=== PATIENT | female | born 1935 | race African-American/Black ===

== ENCOUNTER → 2017-06-30 | Outpatient (CLI) | payer OTHER ==
[~2017-06-30] MED LIST: AMLO5TAB2 PO; ASPI325T17 PO; CARV-39 PO; CHOL500045 PO; HYDR-3237 PO; HYDR-3240 PO; HYDR12.53 PO; LOSA100T6 PO; OMEP-110 PO; OXYB5TAB7 PO; OXYC-302 PO; SIMV20TA3 PO; ZOLP5TAB6 PO
== END | disposition home or self-care (01) ==
LOC: CFH 15:58
PROVIDERS: ATTEND Family Medicine
DX: M47.895 Other spondylosis, thoracolumbar region (principal); M41.85 Other forms of scoliosis, thoracolumbar region; M16.11 Unilateral primary osteoarthritis, right hip; M47.897 Other spondylosis, lumbosacral region; Z96.642 Presence of left artificial hip joint; W18.30XA Fall on same level, unspecified, initial encounter
CPT/HCPCS: 72072; 72110; 72220

== ENCOUNTER 2018-03-04 07:47 | Emergency (ER) | payer OTHER ==
[~2018-03-04] VITALS: Ht 157.5 cm; Wt 74.5 kg
[2018-03-04] MEDS ORDERED: MULT-155 PO (08:13)
[2018-03-04] MEDS ORDERED: SODIUM CHLORIDE FLUSH 10ML SYR IVF ONE (08:30)
[2018-03-04] MEDS ORDERED: MORPHINE SULFATE 4 MG/ML, 1ML ONE (08:30)
[2018-03-04] MEDS ORDERED: MORPHINE SULFATE 4 MG/ML, 1ML IVPush PRN (08:30)
[2018-03-04] MEDS ORDERED: SODIUM CHLORIDE 0.9% 1,000ML IVBOLUS ONE (08:30)
[2018-03-04] MEDS ORDERED: ONDANSETRON ODT 4 MG ONE (08:30)
[2018-03-04] MEDS ORDERED: ONDANSETRON ODT 4 MG PO ONE ×2 (08:30→09:00)
[2018-03-04 08:48] LABS: BASOPHILS # (AUTO) 0.03 x10^3/uL (0-0.1); BASOPHILS % (AUTO) 1 % (0-1); EOSINOPHILS # (AUTO) 0.21 x10^3/uL (0-0.4); EOSINOPHILS % (AUTO) 4 % (1-7); LYMPHOCYTES # (AUTO) 2.14 x10^3/uL (1-3.4); LYMPHOCYTES % (AUTO) 39 % (22-44); MD NO; MEAN CORPUSCULAR HEMOGLOBIN 30.8 pg (27.0-34.8); MEAN CORPUSCULAR HGB CONC 32.9 g/dL (32.4-35.8); MEAN CORPUSCULAR VOLUME 93.7 fL (80-100); MEAN PLATELET VOLUME 8.6 fL (7.4-10.4); MONOCYTES # (AUTO) 0.43 x10^3/uL (0.2-0.8); MONOCYTES % (AUTO) 8 % (2-9); NEUTROPHILS # (AUTO) 2.73 x10^3/uL (1.8-6.8); NEUTROPHILS % (AUTO) 49 % (42-75); PLATELET COUNT 298 x10^3/uL (130-400); RED BLOOD COUNT 4.01 x10^6/uL (3.82-5.3); RED CELL DISTRIBUTION WIDTH 15.9 % (9.6-15.2)
[2018-03-04 08:56] LABS: ALBUMIN 3.5 g/dL (3.4-5.0); ANION GAP 5 mmol/L (5-15); CALCIUM 8.6 mg/dL (8.5-10.1); CHLORIDE 108 mmol/L (98-107); CREATININE 1.11 mg/dL (0.55-1.02)
[2018-03-04 09:00] LABS: MICROSCOPIC NOT IND
[2018-03-04 09:07] LABS: CULTURE INDICATED? NO
[2018-03-04 09:56] VITALS: BP 142/69
== END 2018-03-04 10:18 | disposition home or self-care (01) ==
LOC: ED 08:57
DX: S29.012A Strain of muscle and tendon of back wall of thorax, initial encounter (principal); J15.9 Unspecified bacterial pneumonia; E03.9 Hypothyroidism, unspecified; E11.9 Type 2 diabetes mellitus without complications; I10 Essential (primary) hypertension; X58.XXXA Exposure to other specified factors, initial encounter; Y93.89 Activity, other specified; Y92.89 Other specified places as the place of occurrence of the external cause; Y99.8 Other external cause status
CPT/HCPCS: 36415; 71045; 80048; 81003; 82040; 83605; 85025; 93005; 96374; 99285; J7030; Q0162

== ENCOUNTER 2018-07-24 14:53 | Emergency (ER) | payer OTHER ==
[~2018-07-24] VITALS: Ht 157.5 cm; Wt 78.2 kg
[~2018-07-24 14:53] MED LIST changes: -AMLO5TAB2 PO; +AMLO5TAB7 PO; -LOSA100T6 PO; +LOSA100T7 PO; +MULT-155 PO
[2018-07-24 14:59] VITALS: BP 162/82
[2018-07-24] MEDS ORDERED: METHOCARBAMOL 750 MG TABLET PO ONE (16:30)
[2018-07-24] MEDS ORDERED: METHOCARBAMOL 750 MG TABLET ONE (16:34)
== END 2018-07-24 16:48 | disposition home or self-care (01) ==
LOC: ED 16:08
DX: S46.911A Strain of unspecified muscle, fascia and tendon at shoulder and upper arm level, right arm, initial encounter (principal); I10 Essential (primary) hypertension; X58.XXXA Exposure to other specified factors, initial encounter; Y93.89 Activity, other specified; Y92.89 Other specified places as the place of occurrence of the external cause; Y99.8 Other external cause status
CPT/HCPCS: 99284

== ENCOUNTER 2018-12-14 11:00 | Emergency (ER) | payer MEDICARE, OTHER ==
[~2018-12-14] VITALS: Ht 157.5 cm; Wt 78.5 kg
[~2018-12-14 11:00] MED LIST changes: +AMLO-150 PO; -AMLO5TAB7 PO; +HYDR12.517 PO; -HYDR12.53 PO; +LOSA100T14 PO; -LOSA100T7 PO
[2018-12-14 15:03] LABS: ALBUMIN 3.8 g/dL (3.4-5.0); ANION GAP 4 mmol/L (5-15); CALCIUM 9.4 mg/dL (8.5-10.1); CHLORIDE 109 mmol/L (98-107)
[2018-12-14 15:08] LABS: CREATININE 0.95 mg/dL (0.55-1.02); TROPONIN I < 0.015 ng/mL (0.000-0.045)
[2018-12-14 15:11] LABS: BASOPHILS # (AUTO) 0.04 x10^3/uL (0-0.1); BASOPHILS % (AUTO) 1 % (0-1); EOSINOPHILS # (AUTO) 0.19 x10^3/uL (0-0.4); EOSINOPHILS % (AUTO) 4 % (1-7); LYMPHOCYTES # (AUTO) 1.97 x10^3/uL (1-3.4); LYMPHOCYTES % (AUTO) 36 % (22-44); MEAN CORPUSCULAR HEMOGLOBIN 30.9 pg (27.0-34.8); MEAN CORPUSCULAR HGB CONC 33.1 g/dL (32.4-35.8); MEAN CORPUSCULAR VOLUME 93.4 fL (80-100); MEAN PLATELET VOLUME 9.7 fL (7.4-10.4); MONOCYTES # (AUTO) 0.48 x10^3/uL (0.2-0.8); MONOCYTES % (AUTO) 9 % (2-9); NEUTROPHILS # (AUTO) 2.74 x10^3/uL (1.8-6.8); NEUTROPHILS % (AUTO) 51 % (42-75); PLATELET COUNT 284 x10^3/uL (130-400); RED BLOOD COUNT 4.44 x10^6/uL (3.82-5.3); RED CELL DISTRIBUTION WIDTH 15.6 % (9.6-15.2)
--- NOTE | 2018-12-14 15:11 | NUR ---
PT TO ROOM FROM LOBBY
[2018-12-14 15:12] LABS: MD NO
[2018-12-14] MEDS ORDERED: SODIUM CHLORIDE FLUSH 10ML SYR IVF ONE (16:00)
[2018-12-14] MEDS ORDERED: OMNIPAQUE 350 MG/ML, 100ML BOTTLE ONE (16:19)
[2018-12-14] MEDS ORDERED: MORPHINE SULFATE 4 MG/ML, 1ML ONE (16:36)
[2018-12-14] MEDS: MORPHINE SULFATE 4 MG/ML, 1ML IVPush PRN ×2 (16:44→17:23)
[2018-12-14 17:16] LABS: MICROSCOPIC NOT IND
[2018-12-14 17:38] LABS: CULTURE INDICATED? NO
[2018-12-14 18:46] VITALS: BP 151/75
== END 2018-12-14 18:49 | disposition home or self-care (01) ==
LOC: ED 16:07
DX: K59.00 Constipation, unspecified (principal); E78.5 Hyperlipidemia, unspecified; E78.00 Pure hypercholesterolemia, unspecified; E03.9 Hypothyroidism, unspecified; E11.9 Type 2 diabetes mellitus without complications
CPT/HCPCS: 36415; 71045; 73030; 74177; 80048; 81003; 82040; 83605; 83690; 84484; 85025; 93005; 96374; 96376; 99284; Q9967

== ENCOUNTER 2018-12-16 11:24 | Emergency (ER) | payer MEDICARE, OTHER ==
[~2018-12-16] VITALS: Ht 157.5 cm; Wt 76.0 kg
--- NOTE | 2018-12-16 11:40 | NUR ---
PT PRESENTED TO ED WITH LEFT SIDE PAIN X 5 DAYS. PT WAS SEEN HERE BEFOR 2 DAYS AGO FOR SAME. PT [id number]. PT PLACED IN ROOM AND PLACED ON BP AND CONT. PULSE OXIMETER. ASSESSMENT COMPLETED. AWAITING MD. CALL LIGHT IN REACH
--- NOTE | 2018-12-16 11:51 | NUR ---
Break RN note: Andrew ALMARAZ at bedside to evaluate pt.
[2018-12-16] MEDS ORDERED: SODIUM CHLORIDE FLUSH 10ML SYR IVF ONE (12:00)
[2018-12-16 12:29] LABS: BASOPHILS # (AUTO) 0.05 x10^3/uL (0-0.1); BASOPHILS % (AUTO) 1 % (0-1); EOSINOPHILS # (AUTO) 0.15 x10^3/uL (0-0.4); EOSINOPHILS % (AUTO) 3 % (1-7); LYMPHOCYTES % (AUTO) 40 % (22-44); MD NO; MEAN CORPUSCULAR HEMOGLOBIN 29.8 pg (27.0-34.8); MEAN CORPUSCULAR HGB CONC 32.6 g/dL (32.4-35.8); MEAN CORPUSCULAR VOLUME 91.7 fL (80-100); MEAN PLATELET VOLUME 9.1 fL (7.4-10.4); MONOCYTES # (AUTO) 0.44 x10^3/uL (0.2-0.8); MONOCYTES % (AUTO) 10 % (2-9); NEUTROPHILS # (AUTO) 2.03 x10^3/uL (1.8-6.8); NEUTROPHILS % (AUTO) 46 % (42-75); PLATELET COUNT 277 x10^3/uL (130-400); RED CELL DISTRIBUTION WIDTH 15.3 % (9.6-15.2)
[2018-12-16] MEDS ORDERED: ONDANSETRON 2MG/ML, 2ML ONE (12:29)
[2018-12-16] MEDS ORDERED: ONDANSETRON 2MG/ML, 2ML IVPush ONE (12:30)
[2018-12-16] MEDS ORDERED: MORPHINE SULFATE 4 MG/ML, 1ML IVPush ONE ×2 (12:30→14:00)
[2018-12-16] MEDS ORDERED: MORPHINE SULFATE 4 MG/ML, 1ML ONE (12:30)
[2018-12-16 12:42] LABS: ALBUMIN 3.4 g/dL (3.4-5.0); ANION GAP 4 mmol/L (5-15); CALCIUM 8.7 mg/dL (8.5-10.1); CHLORIDE 109 mmol/L (98-107)
[2018-12-16 12:46] LABS: ALANINE AMINOTRANSFERASE 20 U/L (12-78); ALKALINE PHOSPHATASE 58 U/L (45-117); BILIRUBIN,TOTAL 0.5 mg/dL (0.2-1.0); CREATININE 1.04 mg/dL (0.55-1.02); TOTAL PROTEIN 6.8 g/dL (6.4-8.2)
--- NOTE | 2018-12-16 12:59 | NUR ---
pt assisted to br and clean catch urine obtained and sent to lab. pt placed back on bp and cont. pulse oximeter.
[2018-12-16 13:02] LABS: MICROSCOPIC NOT IND
[2018-12-16 13:04] LABS: CULTURE INDICATED? NO
--- NOTE | 2018-12-16 14:14 | NUR ---
PT STATES ABD PAIN OF 6/10 2ND 2MG MORPHINE GIVEN IV
[2018-12-16 14:15] VITALS: BP 143/66
== END 2018-12-16 15:07 | disposition home or self-care (01) ==
LOC: ED 12:30
DX: R10.32 Left lower quadrant pain (principal); M54.5 Low back pain; E03.9 Hypothyroidism, unspecified; I10 Essential (primary) hypertension; E78.00 Pure hypercholesterolemia, unspecified; E11.9 Type 2 diabetes mellitus without complications; M19.90 Unspecified osteoarthritis, unspecified site
CPT/HCPCS: 36415; 80053; 81003; 85025; 96374; 96375; 96376; 99283; J2405

== ENCOUNTER 2019-11-14 09:18 | Outpatient (CLI) | payer MEDICARE ==
[~2019-11-14 09:18] MED LIST changes: +OXYB5TAB10 PO; -OXYB5TAB7 PO; +SIMV20TA19 PO; -SIMV20TA3 PO
== END 2019-11-14 23:59 | disposition home or self-care (01) ==
LOC: CFH 09:18
PROVIDERS: ATTEND Family Medicine
DX: Z13.820 Encounter for screening for osteoporosis (principal); N25.81 Secondary hyperparathyroidism of renal origin; M54.9 Dorsalgia, unspecified; R10.9 Unspecified abdominal pain; Z78.0 Asymptomatic menopausal state
CPT/HCPCS: 76700; 77080

== ENCOUNTER → 2020-04-01 | Outpatient (CLI) | payer MEDICARE | END | disposition home or self-care (01) | LOC: RAD 09:57 | PROVIDERS: ATTEND Orthopaedic Surgery | DX: M47.26 Other spondylosis with radiculopathy, lumbar region (principal); M51.17 Intervertebral disc disorders with radiculopathy, lumbosacral region; M48.07 Spinal stenosis, lumbosacral region | CPT/HCPCS: 72148 ==

== ENCOUNTER 2020-08-03 13:35 | Inpatient (IN) | payer MEDICARE ==
[~2020-08-03] VITALS: Ht 157.5 cm; Wt 71.0 kg
--- NOTE | 2020-08-03 14:13 | NUR ---
CARLOS ([facility]) [phone]
--- NOTE | 2020-08-03 15:08 | NUR ---
PT UP TO BSC. PT TOLERATED WELL
[2020-08-03 15:10] LABS: BASOPHILS % (AUTO) 1 % (0-1); EOSINOPHILS % (AUTO) 0 % (1-7); LYMPHOCYTES % (AUTO) 25 % (22-44); MEAN CORPUSCULAR HEMOGLOBIN 30.8 pg (27.0-34.8); MEAN PLATELET VOLUME 9.2 fL (7.4-10.4); MONOCYTES % (AUTO) 11 % (2-9); NEUTROPHILS % (AUTO) 64 % (42-75); PLATELET COUNT 235 x10^3/uL (130-400); RED BLOOD COUNT 4.42 x10^6/uL (3.82-5.3)
[2020-08-03 15:11] LABS: MD NO
--- NOTE | 2020-08-03 15:18 | NUR ---
REPORT FROM DANIEL BREWSTER.
[2020-08-03 15:19] LABS: ALANINE AMINOTRANSFERASE 22 U/L (12-78); ALBUMIN 3.4 g/dL (3.4-5.0); ANION GAP 6 mmol/L (5-15); CALCIUM 8.7 mg/dL (8.5-10.1); CHLORIDE 105 mmol/L (98-107); CREATININE 1.07 mg/dL (0.55-1.02)
[2020-08-03 15:26] LABS: ALKALINE PHOSPHATASE 63 U/L (45-117); BILIRUBIN,TOTAL 0.5 mg/dL (0.2-1.0); C-REACTIVE PROTEIN, QUANT 6.07 mg/dL (0.02-0.49); TOTAL PROTEIN 7.3 g/dL (6.4-8.2)
[2020-08-03] MEDS ORDERED: CEFTRIAXONE PMX 1GM/50ML 50 ML IVPB ONE (16:00)
[2020-08-03] MEDS ORDERED: AZITHROMYCIN 500 MG in SODIUM CHLORIDE 0.9% 250 ML IV ONE (16:00)
[2020-08-03] MEDS ORDERED: CEFTRIAXONE PMX 1GM/50ML 50 ML ONE (16:36)
[2020-08-03] MEDS ORDERED: HYDROmorphone 2 MG/ML, 1ML IVPush PRN (17:00)
[2020-08-03] MEDS ORDERED: ONDANSETRON 2MG/ML, 2ML IVPush ONE (17:00)
[2020-08-03] MEDS ORDERED: HYDROcodone/APAP 5/325 TABLET PO PRN (17:00)
[2020-08-03] MEDS ORDERED: METOCLOPRAMIDE 5 MG/ML, 2ML IVPush PRN (17:30)
[2020-08-03] MEDS ORDERED: TRAZODONE 50MG TABLET PO PRN (17:30)
[2020-08-03] MEDS ORDERED: GABAPENTIN 300 MG CAPSULE PO PRN (17:30)
[2020-08-03] MEDS ORDERED: ONDANSETRON ODT 4 MG PO PRN (17:30)
[2020-08-03] MEDS ORDERED: BISACODYL 10 MG SUPP PR PRN (17:30)
[2020-08-03] MEDS ORDERED: MELATONIN 5 MG TABLET PO PRN (17:30)
[2020-08-03] MEDS ORDERED: ACETAMINOPHEN 325 MG TABLET ONE (17:40)
[2020-08-03] MEDS ORDERED: ONDANSETRON 2MG/ML, 2ML ONE (17:40)
[2020-08-03] MEDS: ACETAMINOPHEN 325 MG TABLET PO PRN (17:42)
[2020-08-03] MEDS ORDERED: ASCORBIC ACID 500 MG TABLET ONE (17:53)
[2020-08-03] MEDS ORDERED: HEPARIN 5,000 UNITS/ML, 1ML ONE (17:53)
[2020-08-03] MEDS: HEPARIN 5,000 UNITS/ML, 1ML SQ SCH (18:23)
[2020-08-03] MEDS: ASCORBIC ACID 500 MG TABLET PO SCH (18:24)
[2020-08-03] MEDS: LACTATED RINGERS 1,000 ML IV SCH (18:24)
--- NOTE | 2020-08-03 19:07 | NUR ---
REPORT GIVEN TO VIVEK BREWSTER.
[2020-08-03] MEDS ORDERED: DEXAMETHASONE 4 MG/ML, 1ML ONE (20:49)
[2020-08-03] MEDS ORDERED: DOXYCYCLINE 100MG TABLET ONE (20:49)
[2020-08-03] MEDS ORDERED: GUAIFENESIN ER 600 MG TABLET ONE (20:49)
[2020-08-03] MEDS: DOXYCYCLINE 100MG CAP PO SCH (21:00)
[2020-08-03] MEDS: DEXAMETHASONE 4 MG/ML, 1ML IVPush SCH (21:19)
[2020-08-03] MEDS: SIMVASTATIN 20 MG TABLET PO SCH (21:20)
[2020-08-03] MEDS: CARVEDILOL 25 MG TABLET PO SCH (21:21)
[2020-08-03] MEDS: GUAIFENESIN ER 600 MG TABLET PO SCH (21:21)
--- NOTE | 2020-08-03 23:13 | NUR ---
PT OXYGEN SATURATION 89-90% RA. PLACED ON 1L, O2 SATURATION NOW 97%.
[2020-08-04] MEDS ORDERED: HEPARIN 5,000 UNITS/ML, 1ML ONE ×3 (01:36→16:58)
--- NOTE | 2020-08-04 01:45 | NUR ---
PT AMBULATED TO BEDSIDE COMMODE. PT GIVEN HEPARIN SHOT. PT VSS. NO COMPLAINTS. BACK IN BED AND RESTING COMFORTABLY.
[2020-08-04] MEDS: HEPARIN 5,000 UNITS/ML, 1ML SQ SCH ×3 (01:54→17:05)
--- NOTE | 2020-08-04 06:45 | NUR ---
BEDSIDE REPORT RECEIVED FROM VIVEK BREWSTER
--- NOTE | 2020-08-04 06:57 | NUR ---
REPORT GIVEN TO NEY PERERA.
--- NOTE | 2020-08-04 07:02 | NUR ---
PT SUPINE ON HOSPITAL BED WITH EYES CLOSED. NAD, VSS. PT DENIES ANY NEEDS AT THIS TIME. CALL LIGHT AND PERSONAL BELONGINGS WITHIN REACH. FALL PRECAUTIONS IN PLACE. WILL CONTINUE TO MONITOR.
--- NOTE | 2020-08-04 07:38 | NUR ---
cardiac rhythm strip printed and placed on chart.
--- NOTE | 2020-08-04 08:02 | NUR ---
PT SUPINE ON HOSPITAL BED, NAD, VSS. PT REQUESTS LIGHTS TO BE ON AND TV TURNED ON. PT STATES "I HAVE A HARTMAN", MEDICATED PER EMAR. PT DENIES ANY ADDITIONAL NEEDS AT THIS TIME. WILL CONTINUE TO MONITOR.
[2020-08-04] MEDS ORDERED: DEXAMETHASONE 4 MG/ML, 1ML ONE ×2 (08:43→20:13)
[2020-08-04] MEDS ORDERED: SENNA/DOCUSATE TABLET ONE (08:43)
[2020-08-04] MEDS ORDERED: ASCORBIC ACID 500 MG TABLET ONE ×3 (08:44→16:58)
[2020-08-04] MEDS ORDERED: AMLODIPINE 5 MG TABLET ONE (08:44)
[2020-08-04] MEDS ORDERED: ACETAMINOPHEN 325 MG TABLET ONE (08:44)
[2020-08-04] MEDS ORDERED: DOXYCYCLINE 100MG TABLET ONE ×2 (08:44→20:14)
[2020-08-04] MEDS ORDERED: GUAIFENESIN ER 600 MG TABLET ONE ×2 (08:44→20:13)
[2020-08-04] MEDS: LACTATED RINGERS 1,000 ML IV SCH (08:51)
[2020-08-04] MEDS: GUAIFENESIN ER 600 MG TABLET PO SCH ×2 (08:52→20:39)
[2020-08-04] MEDS: AMLODIPINE 5 MG TABLET PO SCH (08:52)
[2020-08-04] MEDS: SENNA/DOCUSATE TABLET PO SCH (08:52)
[2020-08-04] MEDS: ACETAMINOPHEN 325 MG TABLET PO PRN (08:53)
[2020-08-04] MEDS: ASCORBIC ACID 500 MG TABLET PO SCH ×2 (08:53→17:05)
[2020-08-04] MEDS: DEXAMETHASONE 4 MG/ML, 1ML IVPush SCH ×2 (08:54→20:39)
[2020-08-04] MEDS: LOSARTAN 100 MG TAB PO SCH (09:00)
[2020-08-04] MEDS ORDERED: [UNRECOGNIZED DRUG - REMARK] PO SCH (09:00)
--- NOTE | 2020-08-04 09:02 | NUR ---
PT SITTING UPRIGHT ON HOSPITAL BED, PROVIDED BREAKFAST TRAY AND FRESH CUP OF WATER. PT GIVEN MORNING MEDICATIONS. PT DENIES ANY ADDITIONAL NEEDS AT THIS TIME. CONTINUOUS PULSE OX AND PATROLLER IN PLACE. PERSONAL BELONGINGS AND CALL LIGHT WITHIN REACH. WILL CONTINUE TO MONITOR.
[2020-08-04] MEDS: DOXYCYCLINE 100MG CAP PO SCH ×2 (09:14→20:40)
[2020-08-04] MEDS: CARVEDILOL 25 MG TABLET PO SCH ×2 (09:20→20:46)
[2020-08-04] MEDS: MULTIVITAMINS/MINERALS TABLET PO SCH (09:20)
--- NOTE | 2020-08-04 10:00 | NUR ---
PT SITTING UPRIGHT ON HOSPITAL BED, CONSUMED ABOUT 1/2 OF BREAKFAST TRAY. PT DENIES ANY ADDITIONAL NEEDS AT THIS TIME. CONTINUOUS PULSE OX AND ENGINEERING MANAGER IN PLACE. PERSONAL BELONGINGS AND CALL LIGHT WITHIN REACH. WILL CONTINUE TO MONITOR.
--- NOTE | 2020-08-04 10:45 | NUR ---
TASK RN NOTE: MEAL TRAY ORDERED. PT RECLINED IN BED. NAD NOTED AT THIS TIME.
--- NOTE | 2020-08-04 12:00 | NUR ---
PT SITTING UPRIGHT ON HOSPITAL BED, LUNCH TRAY PROVIDED. PT DENIES ANY ADDITIONAL NEEDS AT THIS TIME. CONTINUOUS PULSE OX AND TRACER BULLET SECTION SUPERVISOR IN PLACE. PERSONAL BELONGINGS AND CALL LIGHT WITHIN REACH. WILL CONTINUE TO MONITOR
[2020-08-04] MEDS ORDERED: ZINC SULFATE 220 MG CAPSULE ONE (12:17)
[2020-08-04] MEDS: ZINC SULFATE 220 MG CAPSULE PO SCH (12:21)
--- NOTE | 2020-08-04 12:34 | NUR ---
cardiac rhythm strip printed and placed on chart.
--- NOTE | 2020-08-04 14:00 | NUR ---
PT SITTING UPRIGHT ON HOSPITAL BED, ATE ENTIRE LUNCH TRAY. PT PROVIDED FRESH GOWN PER REQUEST. PT DENIES ANY ADDITIONAL NEEDS AT THIS TIME. CONTINUOUS PULSE OX AND INFORMATION SECURITY IN PLACE. PERSONAL BELONGINGS AND CALL LIGHT WITHIN REACH. WILL CONTINUE TO MONITOR
--- NOTE | 2020-08-04 15:00 | NUR ---
PT SITTING UPRIGHT ON HOSPITAL BED. PT DENIES ANY ADDITIONAL NEEDS AT THIS TIME. CONTINUOUS PULSE OX AND INSIDE SALES ACCOUNT MANAGER IN PLACE. PERSONAL BELONGINGS AND CALL LIGHT WITHIN REACH. WILL CONTINUE TO MONITOR
[2020-08-04] MEDS ORDERED: CEFTRIAXONE PMX 2GM/50ML 50 ML ONE (15:56)
--- NOTE | 2020-08-04 16:00 | NUR ---
PT SITTING UPRIGHT ON HOSPITAL BED. PT DENIES ANY ADDITIONAL NEEDS AT THIS TIME. CONTINUOUS PULSE OX AND ASSISTED LIVING MANAGER IN PLACE. PERSONAL BELONGINGS AND CALL LIGHT WITHIN REACH. WILL CONTINUE TO MONITOR
[2020-08-04] MEDS: CEFTRIAXONE PMX 2GM/50ML 50 ML IVPB SCH (16:01)
--- NOTE | 2020-08-04 17:06 | NUR ---
PT SITTING UPRIGHT ON HOSPITAL BED. PT GIVEN GLASS OF WATER. PT DENIES ANY ADDITIONAL NEEDS AT THIS TIME. CONTINUOUS PULSE OX AND MOLD CLOSER IN PLACE. PERSONAL BELONGINGS AND CALL LIGHT WITHIN REACH. WILL CONTINUE TO MONITOR
--- NOTE | 2020-08-04 17:25 | NUR ---
PT GIVEN DINNER MEAL TRAY. PT STATES "I DONT EAT BEEF SO I CAN'T EAT THIS SANDWHICH", NEW MEAL TRAY ORDERED PER PT REQUEST.
--- NOTE | 2020-08-04 18:02 | NUR ---
PT GIVEN A TURKEY SANDWHICH FOR DINNER WITH NEW MEAL TRAY. PT SITTING UPRIGHT ON HOSPITAL BED. PT DENIES ANY ADDITIONAL NEEDS AT THIS TIME. CONTINUOUS PULSE OX AND RN CORRECTIONS IN PLACE. PERSONAL BELONGINGS AND CALL LIGHT WITHIN REACH. WILL CONTINUE TO MONITOR
--- NOTE | 2020-08-04 18:56 | NUR ---
BEDSIDE REPORT GIVEN TO WILFREDO BREWSTER.
[2020-08-04] MEDS ORDERED: CARVEDILOL 12.5 MG TABLET ONE (20:14)
--- NOTE | 2020-08-04 20:18 | NUR ---
PT TALKING ON PHONE. NADN. ALL NEEDS MET AT THIS TIME. MEDS ORDERED FROM PHARMACY.
[2020-08-04] MEDS: SIMVASTATIN 20 MG TABLET PO SCH (20:41)
--- NOTE | 2020-08-05 00:03 | NUR ---
FIRST ATTEMPT TO CALL REPORT.
--- NOTE | 2020-08-05 00:10 | NUR ---
REPORT TO PER, HUSSEIN RN.
[2020-08-05] MEDS: HEPARIN 5,000 UNITS/ML, 1ML SQ SCH ×2 (01:01→08:45)
[2020-08-05 01:05] VITALS: BP 136/65
[2020-08-05 06:24] VITALS: BP 126/68
[2020-08-05] MEDS: DEXAMETHASONE 4 MG/ML, 1ML IVPush SCH (08:44)
[2020-08-05] MEDS: DOXYCYCLINE 100MG CAP PO SCH (08:45)
[2020-08-05] MEDS: ASCORBIC ACID 500 MG TABLET PO SCH (08:45)
[2020-08-05] MEDS: MULTIVITAMINS/MINERALS TABLET PO SCH (08:46)
[2020-08-05] MEDS: SENNA/DOCUSATE TABLET PO SCH (08:46)
[2020-08-05] MEDS: GUAIFENESIN ER 600 MG TABLET PO SCH (08:47)
[2020-08-05] MEDS: CARVEDILOL 25 MG TABLET PO SCH (08:48)
[2020-08-05] MEDS: AMLODIPINE 5 MG TABLET PO SCH (08:48)
[2020-08-05] MEDS: LOSARTAN 100 MG TAB PO SCH (08:50)
[2020-08-05] MEDS ORDERED: ENAL20TA9 PO (10:57)
[2020-08-05] MEDS ORDERED: LEVO100T5 PO (10:57)
[2020-08-05] MEDS: ZINC SULFATE 220 MG CAPSULE PO SCH (12:12)
[2020-08-05 12:16] VITALS: BP 113/62
[2020-08-05] MEDS ORDERED: CEFD300C37 PO (12:51)
[2020-08-05] MEDS ORDERED: ASCO500T9 PO (12:51)
[2020-08-05] MEDS ORDERED: GUAI600T31 PO (12:51)
[2020-08-05] MEDS ORDERED: ZINC220C7 PO (12:51)
[2020-08-05] MEDS ORDERED: DOXY100C2 PO (12:51)
[2020-08-05] MEDS ORDERED: DEXA4TAB66 PO (12:51)
[2020-08-05] MEDS: CEFTRIAXONE PMX 2GM/50ML 50 ML IVPB SCH (15:00)
== END 2020-08-05 15:27 | disposition home health service (06) | DRG 177 ==
LOC: ED 14:54 → EDIP 15:49 → 4EST 08-05 00:55
PROVIDERS: ADMIT Internal Medicine; ATTEND Internal Medicine
DX: U07.1 COVID-19 (principal); J96.01 Acute respiratory failure with hypoxia; J12.89 Other viral pneumonia; J15.9 Unspecified bacterial pneumonia; E03.9 Hypothyroidism, unspecified; E11.9 Type 2 diabetes mellitus without complications; E78.00 Pure hypercholesterolemia, unspecified; E86.0 Dehydration; E78.5 Hyperlipidemia, unspecified; I10 Essential (primary) hypertension; Z66 Do not resuscitate; Z87.11 Personal history of peptic ulcer disease
CPT/HCPCS: 36415; 71045; 80053; 82728; 83605; 83615; 85025; 85379; 86140; 87040; 87635; 93005; J0456; J0696; J1100; J1644; J2405; J7050; J7120